=== PATIENT | female | born 1990 | race Caucasian/White ===

== ENCOUNTER 2017-04-19 14:36 | Inpatient (IN) ==
[2017-04-19] MEDS ORDERED: ONDANSETRON 4 MG/2 ML VIAL IVP ONE (14:54)
[2017-04-19] MEDS ORDERED: fentaNYL Inj 250 MCG/5 ML VIAL IVP ONE (14:54)
[2017-04-19] MEDS ORDERED: Sodium Chloride 0.9% 1,000 ML PRIMARY IV ONE ×2 (14:54→18:09)
--- NOTE | 2017-04-19 14:54 | PDOC ---
Chest Pain HPI - General Chief Complaint: Chest Pain Stated Complaint: CHEST PAIN STARTING WEDNESDAY Date Seen by Provider: 04/19/17 Time Seen by Provider: 14:53 Source: Patient Exam Limitations: POSITIVE: No limitations Treatment Prior to Arrival: REPORTS: None Nurse's Notes Reviewed & Considered: Yes - History of Present Illness Initial Comments: This is a anxious 26-year-old female complaining of chest pain and shortness of breath. Patient with chest pain that she describes as sharp with an element of tightness on deep respirations. Her pain radiates into her back and left shoulder and around under her left ribs. She has family history of multiple individuals with DVT, most recently her father 6 month ago with pulmonary embolism. She denies any headache, she does have shortness of breath and chest pain with deep respirations. She denies any vomiting or diarrhea but does have some nausea. She denies any hematuria or dysuria, no rashes. Body Location Affected: REPORTS: Chest Timing: REPORTS: Abrupt Duration: 1-3 hours Severity: Severe Context: REPORTS: Rest Quality: REPORTS: "Pain", Sharpness, Pressure Radiation: REPORTS: Neck (L), Shoulder (L), Back Associated Symptoms: REPORTS: Nausea, Shortness of Breath, Hurts to Breathe Modifying Factors: improves with: None Reported Similar Symptoms Previously: No Recently seen/treated/hospitalized: No Any Prior Injuries Related to Current Complaint?: No - Patient Home Medications Home Medications: Home Medications Acetaminophen [Tylenol] 500 mg PO Q6H PRN 04/19/17 Ranitidine HCl 75 mg PO DAILY 04/19/17 - Patient Allergies Allergies/Adverse Reactions: Allergies Allergy/AdvReac Type Severity Reaction Status Date / Time ciprofloxacin [From Cipro] Allergy VOMITING Verified 04/19/17 14:55 ciprofloxacin HCl Allergy VOMITING Verified 04/19/17 14:55 [From Cipro] latex Allergy Anaphylaxis Verified 04/19/17 14:55 "FEI" Allergy RASH Uncoded 04/19/17 14:55 ROS - Limitations ROS Limitations: No Limitations Constitution: REPORTS: Denies Symptoms Cardiovascular: REPORTS: Chest Pain Respiratory: REPORTS: Hurts To Breathe, Shortness Of Breath Neurological: REPORTS: Denies Neuro Symptoms Gastrointestinal: REPORTS: Nausea Endocrine: REPORTS: Denies Symptoms Musculoskeletal: REPORTS: Back Pain Genitourinary: REPORTS: Denies Symptoms Eyes: REPORTS: Denies Symptoms ENT: REPORTS: Denies Symptoms Skin: REPORTS: Denies Skin Symptoms Lympathic: REPORTS: Denies Lympathic Symptoms Immunologic: POSITIVE: Denies Symptoms Psychiatric: POSITIVE: Anxiety Chest Pain PE - General Appearance General Appearance: REPORTS: Alert, Cooperative, No Evidence of Trauma, Moderate Distress - HEENT HEENT: POSITIVE: Head Inspection Nml, Eyes Inspection Nml, Ears Inspection Nml, Nose Inspection Nml, Oral/Dental Inspect. Nml, Pharynx Inspect. Nml, PERRL, EOMI - Neck Neck: REPORTS: Normal Inspection, No Carotid Bruit - Respiratory Respiratory: REPORTS: No Respiratory Distress, Breath Sounds Normal, Chest Non- Tender - Cardiovascular Cardiovascular: REPORTS: Regular Rate and Rhythm, Heart Sounds Normal, Strong Pulses, No Murmur, No Gallop, No Friction Rub, No JVD Peripheral Pulses: Brachial (L): 4+ - Abdomen Abdomen: Soft: (All Quadrants), Normal Bowel Sounds: (All Quadrants), Denies Tenderness: (All Quadrants), No Splenomegaly: (All Quadrants), No Hepatomegaly: (All Quadrants), No Guarding: (All Quadrants), No Rebound: (All Quadrants), No Palpable Pulse: (All Quadrants), No Palpabale Mass: (All Quadrants), No Distention: (All Quadrants), No Rigidity: (All Quadrants) - Skin Skin: REPORTS: Intact, Normal For Race, Warm, Dry, No Rash - Extremities Extremity: Non-Tender: (All Extremities), Normal ROM: (All Extremities), Normal Inspection: (All Extremities), Pelvis Stable: (All Extremities) - Neurological / Psychological Neurological: POSITIVE: Oriented X3, Motor Normal, Sensation Normal Chest Pain Progress - Results Reviewed by me Xrays/CTs/US Reviewed by me: Yes Discussed with Radiologist: Yes Lab Results Reviewed: Yes Lab Results:: Laboratory Results 04/19/17 04/19/17 Range/Units 14:45 14:58 WBC 4.44 L (4.8-10.8) 10^3/uL RBC 4.61 (4.20-5.40) 10^6/uL Hgb 14.2 (12.0-16.0) g/dL Hct 41.9 (37.0-47.0) % MCV 90.9 (81-99) FL MCH 30.8 (27-31) PG MCHC 33.9 (33-37) g/dL RDW Std Deviation 44.0 (39-50) fL RDW Coeff of Gabrielle 13.4 (11.5-14.5) % Plt Count 258 (140-350) 10*3/uL MPV 9.0 (7.4-12.2) FL Immature Gran % (Auto) 0 (0-5) % Neut % (Auto) 46.1 L (50-80) % Lymph % (Auto) 38.7 (10-50) % Peach % (Auto) 12.4 (5-15) % Eos % (Auto) 2.3 (0-8) % Baso % (Auto) 0.5 (0-1) % Immature Gran # (Auto) 0 10*3/UL Neut # (Auto) 2.05 10*3/UL Lymph # (Auto) 1.72 10*3/uL Peach # (Auto) 0.55 (0.3-0.8) 10*3/UL Eos # (Auto) 0.10 10*3/UL Baso # (Auto) 0.02 10*3/UL WBC Morphology Comment Normal morphology (NORM) Plt Morphology Comment Normal morphology (NORM) RBC Morph Comment Normal morphology (NORM) PT 10.3 (9.7-11.4) secs INR 0.97 (0.00-5.90) N/A D-Dimer 1.41 H (0.00-0.59) mg/L Sodium 142 (135-145) meq/L Potassium 3.5 L (3.8-5.2) meq/L Chloride 107 (98-112) meq/L Carbon Dioxide 22 L (23-33) meq/L Anion Gap 13 (5-20) BUN 8 (7-22) mg/dL Creatinine 0.7 (0.50-1.20) mg/dL Estimated GFR > 60 (>60 ml/min/1.73m(2)) BUN/Creatinine Ratio 11.42 (6-20) Glucose 91 (78-110) mg/dL Calculated Osmolality 291.0 (267-292) mOsm/kg Calcium 9.5 (8.7-10.7) mg/dL Magnesium 2.0 (1.6-2.4) mg/dL Total Bilirubin 0.5 (0.3-1.2) mg/dL AST 18 (8-39) IU/L ALT 33 (9-52) IU/L Alkaline Phosphatase 79 (38-126) IU/L CK-MB (CK-2) 0.52 (0.00-5.00) NG/ML Troponin I < 0.012 (< 0.040) ng/mL C-Reactive Protein 3.4 H (0.0-0.9) mg/dL Total Protein 7.7 (6.1-8.0) g/dL Albumin 4.4 (3.5-4.8) g/dL Globulin 3.3 (2.50-4.10) g/dL Albumin/Globulin Ratio 1.30 (1.3-2.0) mg/g TSH 1.29 (0.2700-4.2000) uIU/mL EKG Interpreted/Reviewed By Me:: Yes EKG Interpretation:: POSITIVE: Normal Sinus Rhythm - Patient's Progress Pain Medication Addressed: POSITIVE: Yes Re-Examine Time: 17:49 Status: POSITIVE: Improved MDM / ED Course: Patient was evaluated, an IV started, blood drawn and sent to the lab for studies, EKG and radiographic examinations were obtained. Findings: D-dimer is elevated at 1-1/2, CBC is unremarkable, troponin is normal , comprehensive metabolic panel is unremarkable, CRP is elevated at 3-1/2. Chest x-ray shows no acute cardiopulmonary decompensation. CT scan for rule out of pulmonary embolism was unsuccessful due to failure of the IV. My discussion with radiology is to repeat CT examination in 3-4 hours after hydration. As it stands now the CT showed a small pericardial effusion present. Assessment: Chest pain with shortness of breath, probable pulmonary embolism. Plan: Admission. Quality Measure Initiative: CP/AMI: POSITIVE: EKG Quality Measure Initiative: CAP: POSITIVE: CXR or CT - Consult Consult (If Yes, Name of Consulting MD & Time Called): Yes (Dr. Reyes: [id number]) Consulting MD will see pt:: POSITIVE[place] [facility] [place] Counseled: POSITIVE: Patient, RE: Lab Results, RE: Radiology Results, RE: DX Patient Care Time - Estimated PCT Patient Care Time (In Minutes): 60 Vital Signs - Recent Vital Signs Vital Signs: Vital Signs (Last 8 hours) Temp Pulse Pulse Resp BP Pulse Ox 04/19/17 14:39 105 H 04/19/17 14:36 97.0 F 98 17 123/79 100 Discharge Clinical Impression: Chest pain Discharge Disposition: Admit to Inpatient Condition: Stable Patient Instructions Given at Discharge: Chest Pain (ED) Date Decision to Admit to Inpatient: 04/19/17 Time Decision to Admit to Inpatient: 17:49
[2017-04-19 15:01] LABS: BASOPHILS # (AUTO) 0.02 10*3/UL; BASOPHILS % (AUTO) 0.5 % (0-1); EOSINOPHILS % (AUTO) 2.3 % (0-8); Hematocrit [HCT] 41.9 % (37.0-47.0); Hemoglobin [HGB] 14.2 g/dL (12.0-16.0); LYMPHOCYTES # (AUTO) 1.72 10*3/uL; MEAN CORPUSCULAR HEMOGLOBIN 30.8 PG (27-31); MEAN CORPUSCULAR HGB CONC 33.9 g/dL (33-37); MEAN CORPUSCULAR VOLUME 90.9 FL (81-99); MONOCYTES # (AUTO) 0.55 10*3/UL (0.3-0.8); MONOCYTES % (AUTO) 12.4 % (5-15); NEUTROPHILS # (AUTO) 2.05 10*3/UL; NEUTROPHILS % (AUTO) 46.1 % (50-80); RED BLOOD COUNT 4.61 10^6/uL (4.20-5.40)
[2017-04-19 15:03] LABS: PLATELET MORPHOLOGY COMMENT NORMAL MORPHOLOGY (NORM); RBC MORPHOLOGY COMMENT NORMAL MORPHOLOGY (NORM); WBC MORPHOLOGY COMMENT NORMAL MORPHOLOGY (NORM)
[2017-04-19] MEDS: fentaNYL Inj 100 MCG/2 ML VIAL IVP ONE ×2 (15:17→15:29)
[2017-04-19 15:19] LABS: BLOOD UREA NITROGEN 8 mg/dL (7-22); BUN/CREATININE RATIO 11.42 (6-20); SERUM ALBUMIN 4.4 g/dL (3.5-4.8)
[2017-04-19] MEDS ORDERED: LORazepam 2 MG/1 ML VIAL IVP ONE (15:31)
--- NOTE | 2017-04-19 15:31 | DI ---
AP CHEST X-RAY, 04/19/2017 2:54 PM : Clinical History: Chest pain. Previous Exam: None at this facility. There is no acute soft tissue or bony abnormality. Heart size is normal. Lungs are clear. Mediastinal structures are normal. There are no pulmonary nodules. Reading: Normal chest x-ray.
[2017-04-19] MEDS ORDERED: KETOROLAC 15 MG/1 ML VIAL IVP ONE (16:00)
--- NOTE | 2017-04-19 16:04 | EKG ---
[address] [address] Measurements Intervals [place] Rate: 105 P: 41 [place]: 136 QRS: 81 QRSD: 88 T: -8 QT: 349 QTc: 410 Interpretive Statements SINUS TACHYCARDIA ABNORMAL QRS-T ANGLE [QRS-T AXIS DIFFERENCE > 60] INTERPRETATION BASED ON A DEFAULT AGE OF 40 YEARS No previous ECG available for comparison Electronically Signed On 04-20-17 11:43:22 MDT by Negro Molina MD [email or web address]
[2017-04-19] MEDS ORDERED: NITROGLYCERIN 0.4 MG SL TAB (BOTTLE OF 3) SL ONE (16:43)
[2017-04-19] MEDS ORDERED: MORPHINE SULFATE 4 MG/1 ML IVP ONE ×2 (18:43→18:44)
--- NOTE | 2017-04-19 21:23 | DI ---
VENOUS DOPPLER ULTRASOUND OF BOTH LOWER EXTREMITIES, 04/19/2017 8:04 PM: Clinical History: Leg pain. Previous Exam: None at this facility. Technique: 2D real-time imaging is supplemented with color Doppler ultrasound. Compression and augmen tation maneuvers were performed. The deep venous system from the groin to the popliteal fossa for both legs is normal. The greater sap henous veins are also normal. Reading: Negative venous Doppler ultrasound of both lower extremities for deep vein thrombosis.
[2017-04-19] MEDS ORDERED: Apixaban 5 MG TABLET PO SCH (21:46)
[2017-04-19] MEDS ORDERED: HYDROmorphone 2 MG/1 ML IVP PRN (21:46)
[2017-04-19] MEDS ORDERED: ACETAMINOPHEN 325 MG TABLET PO PRN (21:46)
[2017-04-19] MEDS ORDERED: LIDOCAINE W/ SODIUM BICARB 0.5 ML SYR SUBD PRN (21:46)
--- NOTE | 2017-04-19 22:23 | PDOC ---
History and Physical - History of Present Illness Date and Time of Service: 04/11/2017, 2219 Chief Complaint: Chest pain History of Present Illness: This very pleasant 26-year-old female with really no past medical history who presents with onset of chest pain last . She states that it was substernal and has been somewhat positional in that she cannot lay flat with the pain. She's had some shortness of breath developed but has denied any fevers, cough, or chills. The pain is been persistent despite trying Tylenol and antacids. The patient is not had chest pain like this before. She lives somewhat transiently with her in a camper and spends her time between [place] and [place], as her works for the railroad and she cares for her child at home. Patient was given opiates in the emergency room which seemed to help somewhat with the pain. It was reproducible on examination. Past Medical History Medical History: None Surgical History: 1. Cholecystectomy. 2. Appendectomy. 3. Foot and ankle surgery. 4. Right shoulder surgery 2. 5. Tonsillectomy Pertinent Family History: Father had blood clots. History of diabetes in the family. Past Social History: Does not smoke or drink. Has 1 child, described as healthy 2 years old. Currently [id number] mom and travels between [place] in [place] with her . Lives in a trailer. Tobacco Use: Never Smoker Substance Use Type: None Alcohol Use: None Medication / Allergies Home Medications: Home Medications Medication Instructions Recorded Confirmed Type Acetaminophen [Tylenol] 500 mg PO Q6H PRN 04/19/17 04/19/17 History Ranitidine HCl 75 mg PO DAILY 04/19/17 04/19/17 History Allergies/Adverse Reactions: Allergies Allergy/AdvReac Type Severity Reaction Status Date / Time ciprofloxacin [From Cipro] Allergy VOMITING Verified 04/19/17 21:47 ciprofloxacin HCl Allergy VOMITING Verified 04/19/17 21:47 [From Cipro] latex Allergy Anaphylaxis Verified 04/19/17 21:47 "FEI" Allergy RASH Uncoded 04/19/17 21:47 Review of Systems - Review of Systems All Systems: Reviewed & No Additional Complaints Except as Stated (I did a 12 point review systems and it is negative other than that discussed in the history of present illness and that noted below.) - Cardiovascular Cardiovascular: REPORTS: See HPI - Gastrointestinal Gastrointestinal / Abdominal: REPORTS: Nausea, Diarrhea. DENIES: Vomiting - Hematlogic / Lymphatic Hematologic / Lymphatic: REPORTS: Easy Bleeding/Bruising Exam - Vitals Vital Signs: Vital Signs Temperature 98.0 F Temperature Source Temporal Artery Scan Pulse Rate [Pulse Oximeter] 92 Pulse Rate 111 Respiratory Rate 16 Blood Pressure [Left Arm] 124/65 Blood Pressure 125/80 Pulse Ox 96 Oxygen Delivery Method Room Air Height 5 ft 7 in Weight 233 lb 9.6 oz - General General Appearance: POSITIVE: No Acute Distress, Cooperative - Head Head Exam: POSITIVE: Normal Inspection, Normocephalic, Atraumatic - Eye Eye Exam: POSITIVE: No Scleral Icterus - ENT ENT Exam: POSITIVE: Mucous Membranes Moist - Neck Neck Exam: POSITIVE: Normal Inspection, No Tenderness, No Thyromegaly - Respiratory Respiratory Exam: POSITIVE: Clear to Auscultation - Bilaterally, Breathing Non Labored, Normal to Percussion and Palpation - Cardiovascular Cardiovascular Exam: POSITIVE: No Murmur, No Clicks, No Gallops, No Rubs, Tachycardia, No JVD Additional Cardiovascular Details: Chest pain reproducible with palpation. - GI/Abdominal GI/Abdominal Exam: POSITIVE: Normal Bowel Sounds, Non Tender, Non Distended, Soft - Rectal Rectal Exam: POSITIVE: Deferred - External Exam: POSITIVE: Deferred Exam: POSITIVE: Deferred - Extremities Extremities Exam: POSITIVE: No Clubbing Present, No Edema Present, No Cyanosis Present - Back Back Exam: POSITIVE: Normal Inspection, No CVA Tenderness - Neurological Neurological Exam: POSITIVE: Alert, Oriented x 3, No Facial Droop, Speech Intact / Clear, Moves All Extremities Equally - Psychiatric Psychiatric Exam: POSITIVE: Normal Affect, Normal Mood - Integumentary Integumentary Exam: POSITIVE: Normal Color, Warm, Dry, Intact - Central Line Examination Central Line Present on Admission: No Results - Labs CBC and BMP: 04/19/17 14:58 04/19/17 14:58 Labs - Last 24 Hours: Laboratory Results 04/19/17 04/19/17 Range/Units 14:45 14:58 WBC 4.44 L (4.8-10.8) 10^3/uL RBC 4.61 (4.20-5.40) 10^6/uL Hgb 14.2 (12.0-16.0) g/dL Hct 41.9 (37.0-47.0) % MCV 90.9 (81-99) FL MCH 30.8 (27-31) PG MCHC 33.9 (33-37) g/dL RDW Std Deviation 44.0 (39-50) fL RDW Coeff of Gabrielle 13.4 (11.5-14.5) % Plt Count 258 (140-350) 10*3/uL MPV 9.0 (7.4-12.2) FL Immature Gran % (Auto) 0 (0-5) % Neut % (Auto) 46.1 L (50-80) % Lymph % (Auto) 38.7 (10-50) % Storey % (Auto) 12.4 (5-15) % Eos % (Auto) 2.3 (0-8) % Baso % (Auto) 0.5 (0-1) % Immature Gran # (Auto) 0 10*3/UL Neut # (Auto) 2.05 10*3/UL Lymph # (Auto) 1.72 10*3/uL [place]y # (Auto) 0.55 (0.3-0.8) 10*3/UL Eos # (Auto) 0.10 10*3/UL Baso # (Auto) 0.02 10*3/UL WBC Morphology Comment Normal morphology (NORM) Plt Morphology Comment Normal morphology (NORM) RBC Morph Comment Normal morphology (NORM) PT 10.3 (9.7-11.4) secs INR 0.97 (0.00-5.90) N/A D-Dimer 1.41 H (0.00-0.59) mg/L Sodium 142 (135-145) meq/L Potassium 3.5 L (3.8-5.2) meq/L Chloride 107 (98-112) meq/L Carbon Dioxide 22 L (23-33) meq/L Anion Gap 13 (5-20) BUN 8 (7-22) mg/dL Creatinine 0.7 (0.50-1.20) mg/dL Estimated GFR > 60 (>60 ml/min/1.73m(2)) BUN/Creatinine Ratio 11.42 (6-20) Glucose 91 (78-110) mg/dL Calculated Osmolality 291.0 (267-292) mOsm/kg Calcium 9.5 (8.7-10.7) mg/dL Magnesium 2.0 (1.6-2.4) mg/dL Total Bilirubin 0.5 (0.3-1.2) mg/dL AST 18 (8-39) IU/L ALT 33 (9-52) IU/L Alkaline Phosphatase 79 (38-126) IU/L CK-MB (CK-2) 0.52 (0.00-5.00) NG/ML Troponin I < 0.012 (< 0.040) ng/mL C-Reactive Protein 3.4 H (0.0-0.9) mg/dL Total Protein 7.7 (6.1-8.0) g/dL Albumin 4.4 (3.5-4.8) g/dL Globulin 3.3 (2.50-4.10) g/dL Albumin/Globulin Ratio 1.30 (1.3-2.0) mg/g TSH 1.29 (0.2700-4.2000) uIU/mL - EKG Data -: EKG Interpreted by Me Rate: Tachycardia EKG Shows Normal: Sinus Rhythm - EKG Data EKG Interpretation: Other (Appears to have an S1 QIII TIII pattern.) - Imaging Status: Image Reviewed by Me (Chest x-ray is negative. CT scan initially did not have time to contrast bolus, so we are repeating CT scan which is pending at this time. Ultrasound of the lower extremities is negative. Bilaterally.) Assessment and Plan - Patient Problems (1) Chest pain Current Visit: Yes Status: Acute Qualifiers: Chest pain type: chest pain on breathing Qualified Description: Chest pain on breathing Qualifier Code(s): (R07.1) Chest pain on breathing, ( R07.81) Pleurodynia - Assessment / Plan Additional Assessment/Plan Details: Thus far, this could very well represent a pulmonary emboli with an elevated d- dimer and continued chest pain. Fortunately, the ultrasound of the lower extremity is as negative, but that does not rule out a pulmonary emboli. The other possibility is that this could be pericarditis. If the CT scan is negative, then I will treat for pericarditis with steroids and /or anti-inflammatories. I would also get an echocardiogram, and have the patient follow with her primary care provider to make sure the pericarditis clears. I would also consider strongly a workup for rheumatoid arthritis and lupus at that point. If the CT scan is positive, then I will treat with anticoagulants, and discuss further with the patient. I written for opiates and antiemetics at this point. I discussed above plan with the patient, her , and her father and they all agree. I will note that the patient does have an IUD in place, but I would like to confirm that she has a negative test given contrast and radiation studies.
[2017-04-19] MEDS: ONDANSETRON 4 MG/2 ML VIAL IVP PRN (22:54)
[2017-04-19] MEDS: NORMAL SALINE 10 ML SYRINGE FLUSH IVP PRN (22:55)
[2017-04-20] MEDS: NORMAL SALINE 10 ML SYRINGE FLUSH IVP PRN ×2 (00:05→17:05)
[2017-04-20] MEDS: KETOROLAC 15 MG/1 ML VIAL IVP PRN ×4 (00:05→17:06)
[2017-04-20] MEDS: Sodium Chloride 0.9% 1,000 ML PRIMARY IV SCH ×2 (00:06→20:39)
--- NOTE | 2017-04-20 00:33 | DI ---
HISTORY: Chest pain. Elevated d-dimer. COMPARISON: None available. TECHNIQUE: CTA of the chest was performed with contrast and the images were submitted for interpreta tion. FINDINGS: There is no evidence of pulmonary embolus to the level of the lobar arteries. The pulmona ry vascularity is within normal limits. The heart is normal in size. The aorta is normal in caliber . The central airway is patent. There is no evidence of focal consolidation, pleural effusion or pn eumothorax. An accessory azygous lobe and fissure are noted. No acute skeletal pathology is seen. The imaged portions of the upper abdomen are grossly unremarkable. IMPRESSION: 1. No pulmonary embolus to the level of the lobar arteries. Artifact and timing bolus limits evaluat ion of the more distal branches. 2. No other significant findings. NOTIFICATION: The above report was faxed to Sintia Engle in the ER Department on 04/20/2017 at 04 :28 AM EST.
[2017-04-20] MEDS ORDERED: methylPREDNISolone 125 MG/2 ML VIAL IVP ONE (00:50)
[2017-04-20 05:05] LABS: BASOPHILS # (AUTO) 0.02 10*3/UL; BASOPHILS % (AUTO) 0.5 % (0-1); EOSINOPHILS # (AUTO) 0.03 10*3/UL; EOSINOPHILS % (AUTO) 0.7 % (0-8); Hemoglobin [HGB] 13.4 g/dL (12.0-16.0); LYMPHOCYTES # (AUTO) 0.91 10*3/uL; MEAN CORPUSCULAR HEMOGLOBIN 30.6 PG (27-31); MEAN CORPUSCULAR HGB CONC 33.5 g/dL (33-37); MEAN CORPUSCULAR VOLUME 91.3 FL (81-99); MEAN PLATELET VOLUME 9.4 FL (7.4-12.2); MONOCYTES # (AUTO) 0.13 10*3/UL (0.3-0.8); MONOCYTES % (AUTO) 3.2 % (5-15); NEUTROPHILS # (AUTO) 2.97 10*3/UL; NEUTROPHILS % (AUTO) 73.2 % (50-80); RED BLOOD COUNT 4.38 10^6/uL (4.20-5.40)
[2017-04-20 05:21] LABS: BLOOD UREA NITROGEN 6 mg/dL (7-22)
[2017-04-20 05:30] LABS: PLATELET MORPHOLOGY COMMENT NORMAL MORPHOLOGY (NORM); RBC MORPHOLOGY COMMENT NORMAL MORPHOLOGY (NORM); WBC MORPHOLOGY COMMENT NORMAL MORPHOLOGY (NORM)
[2017-04-20] MEDS: HYDROcodone-APAP 5 MG -325 MG TABLET PO PRN ×2 (08:31→17:46)
--- NOTE | 2017-04-20 08:55 | DI ---
CT ANGIOGRAM OF THE CHEST, 04/19/2017 3:28 PM : Clinical History: Chest pain with shortness of breath. Previous Exam: None at this facility. Scans are performed from the base of the neck to the lower lung bases following IV administration of approximately 30 mL of Isovue 300 before the IV access failed. The scans are nondiagnostic with respe ct to evaluation of pulmonary embolism. There are diagnostic with respect to a CT scan of the chest w ith IV contrast. The base of the neck and thoracic inlet are normal. There are no abnormal axillary, supraclavicular, mediastinal, or hilar nodes. The heart is normal. The pulmonary arteries are normal in size. There is no pulmonary arterial hypertension. Pulmonary embolism cannot be identified because of the low opaci fication of the pulmonary arteries. The lungs are clear and there are no pulmonary nodules or masses. There is diffuse fatty infiltration of the liver. The adrenal glands, spleen, and visualized portion s of the pancreas are normal. READIN. The study is nondiagnostic with respect to evaluation of the pulmonary arteries for pulmonary emb olism. The patient is scheduled to have a repeat study performed in about [address] scan of the chest with IV contrast is normal. 3. There is diffuse fatty infiltration of the liver.
[2017-04-20] MEDS ORDERED: FAMOTIDINE 20 MG TABLET PO SCH (09:00)
[2017-04-20] MEDS ORDERED: METHYLPREDNISOLONE 4 MG TAB DOSE PACK PO SCH (09:00)
[2017-04-20] MEDS ORDERED: METHYLPREDNISOLONE 4 MG TAB DOSE PACK(DAY 1 0700) PO SCH (09:00)
[2017-04-20] MEDS ORDERED: METHYLPREDNISOLONE 4 MG TAB DOSE PACK PO ONE (09:43)
[2017-04-20] MEDS: ONDANSETRON 4 MG/2 ML VIAL IVP PRN (10:38)
[2017-04-20] MEDS ORDERED: METHYLPREDNISOLONE 4 MG TAB DOSE PACK(DAY 1-4 1230) PO SCH (12:00)
--- NOTE | 2017-04-20 15:09 | PDOC(PROG) ---
Date and Time of Service: 04/20/2017, 1508 Interval History: Still complains of the chest pain, sharp and intermittent in epigastric area and along the rib cage mostly, worse with deep breath and positional changes. Initial report on echocardiogram as there may not be an effusion, but official report pending. It is a limited study. The patient states that she has had some nausea but no vomiting, no abdominal pain otherwise. Toradol does help the chest pain. Objective : Data - Labs CBC and BMP: 04/20/17 04:30 04/20/17 04:30 Labs - Last 24 Hours: Laboratory Results 04/19/17 04/20/17 Range/Units 22:23 04:30 WBC 4.06 L (4.8-10.8) 10^3/uL RBC 4.38 (4.20-5.40) 10^6/uL Hgb 13.4 (12.0-16.0) g/dL Hct 40.0 (37.0-47.0) % MCV 91.3 (81-99) FL MCH 30.6 (27-31) PG MCHC 33.5 (33-37) g/dL RDW Std Deviation 44.4 (39-50) fL RDW Coeff of Gabrielle 13.5 (11.5-14.5) % Plt Count 240 (140-350) 10*3/uL MPV 9.4 (7.4-12.2) FL Immature Gran % (Auto) 0 (0-5) % Neut % (Auto) 73.2 (50-80) % Lymph % (Auto) 22.4 (10-50) % Dare % (Auto) 3.2 L (5-15) % Eos % (Auto) 0.7 (0-8) % Baso % (Auto) 0.5 (0-1) % Immature Gran # (Auto) 0 10*3/UL Neut # (Auto) 2.97 10*3/UL Lymph # (Auto) 0.91 10*3/uL Dare # (Auto) 0.13 L (0.3-0.8) 10*3/UL Eos # (Auto) 0.03 10*3/UL Baso # (Auto) 0.02 10*3/UL WBC Morphology Comment Normal morphology (NORM) Plt Morphology Comment Normal morphology (NORM) RBC Morph Comment Normal morphology (NORM) Sodium 141 (135-145) meq/L Potassium 3.9 (3.8-5.2) meq/L Chloride 111 (98-112) meq/L Carbon Dioxide 20 L (23-33) meq/L Anion Gap 10 (5-20) BUN 6 L (7-22) mg/dL Creatinine 0.6 (0.50-1.20) mg/dL Estimated GFR > 60 (>60 ml/min/1.73m(2)) BUN/Creatinine Ratio 10.00 (6-20) Glucose 125 H (78-110) mg/dL Calculated Osmolality 290.0 (267-292) mOsm/kg Calcium 8.8 (8.7-10.7) mg/dL U Specif Grav (Refrac) 1.020 Urine HCG, Qual Negative - Imaging CT Scan Status: Image Pending (I have ordered a VQ scan as 2 CT scans have had phase contrast problems with IV contrast. It does not appear that it will be positive for a pulmonary emboli, but I'd like to confirm as best as possible.), Report Reviewed by Me (CT scan, again negative for pneumonia and for pulmonary embolism but only done about second order branches.) Objective : Exam - General General Appearance: No Acute Distress, Cooperative Additional General Exam Details: Vital Signs - Last Taken Temperature 97.4 F 04/20/17 12:09 Pulse Rate 94 04/20/17 12:09 Respiratory Rate 18 04/20/17 12:09 Blood Pressure 117/63 04/20/17 12:09 Pulse Ox 94 04/20/17 12:09 - Eye Eye Exam: No Scleral Icterus - ENT ENT Exam: Mucous Membranes Moist - Respiratory Respiratory Exam: Clear to Auscultation - Bilaterally, Breathing Non Labored Additional Respiratory Exam Details: Pain appears very pleuritic in nature as she does have some pain with deep breathing. - Cardiovascular Cardiovascular Exam: RRR, No Murmur, No Clicks, No Gallops, No Rubs - GI/Abdominal GI/Abdominal Exam: Normal Bowel Sounds, Non Tender, Non Distended, Soft - Extremities Extremities Exam: No Clubbing Present, No Edema Present, No Cyanosis Present - Neurological Neurological Exam: Alert, Oriented x 3, No Facial Droop, Speech Intact / Clear, Moves All Extremities Equally Assessment and Plan - Patient Problems (1) Chest pain Current Visit: Yes Status: Acute Qualifiers: Chest pain type: chest pain on breathing Qualified Description: Chest pain on breathing Qualifier Code(s): (R07.1) Chest pain on breathing, ( R07.81) Pleurodynia - Assessment / Plan Additional Assessment/Plan Details: Pleuritic pain, I still think pericarditis is most likely. I would like a VQ scan to make sure we are not missing pulmonary emboli and given 2 CT scans of the chest with some issues with the IV contrast phase, I think it's best to just do the VQ scan this time. Continue anti-inflammatories and steroids. We'll stop IV fluids. Get a lipase level to make sure not missing any abdominal variant.
--- NOTE | 2017-04-20 16:37 | DI ---
VENTILATION AND PERFUSION LUNG SCAN, 04/20/2017 10:05 AM: Clinical History: Chest pain. Previous Exam: None at this facility. Technique: The patient was ventilated with Tc-99 DTPA aerosol, and 8 views were attempted, but the pa tient could not tolerate ventilation for the RPO and POLISH projections. The patient was then injected w ith 6 mCi of Tc-99 MAA IV, and the routine 8 views were performed. The ventilation scans are normal on the 60s that were obtained. All 8 perfusion scans are normal. Reading: Normal ventilation and perfusion lung scan. These carry a low probability for pulmonary embolism.
[2017-04-20] MEDS ORDERED: METHYLPREDNISOLONE 4 MG TAB DOSE PACK(DAY 1-3 1730) PO SCH (17:30)
[2017-04-20] MEDS ORDERED: CALCIUM CARBONATE 500 MG (TUMS) CHEWABLE TABLET PO PRN (20:19)
[2017-04-20] MEDS ORDERED: Pantoprazole Inj 40 MG in Normal Saline Flush 10 ML IVP ONE (20:19)
[2017-04-20] MEDS ORDERED: Naproxen Tab 500 MG TAB PO ONE (20:24)
[2017-04-20] MEDS ORDERED: METHYLPREDNISOLONE 4 MG TAB DOSE PACK(DAY 1-2 2100) PO SCH (21:00)
[2017-04-21] MEDS: Pantoprazole Inj 40 MG in Normal Saline Flush 10 ML IVP SCH ×3 (01:59→21:44)
[2017-04-21] MEDS: Sodium Chloride 0.9% 1,000 ML PRIMARY IV SCH (02:02)
[2017-04-21] MEDS ORDERED: Naproxen Tab 500 MG TAB PO SCH (07:00)
[2017-04-21] MEDS ORDERED: METHYLPREDNISOLONE 4 MG TAB DOSE PACK(DAY 2-6 0700) PO SCH (07:00)
[2017-04-21] MEDS: HYDROcodone-APAP 5 MG -325 MG TABLET PO PRN (08:13)
[2017-04-21] MEDS ORDERED: Acetaminophen 1000mg Inj 1,000 MG in Premix 1 BAG IV ONE (10:19)
[2017-04-21] MEDS: NORMAL SALINE 10 ML SYRINGE FLUSH IVP PRN ×2 (15:28→18:03)
[2017-04-21] MEDS: KETOROLAC 30 MG/1 ML VIAL IVP PRN ×2 (15:30→21:45)
--- NOTE | 2017-04-21 16:52 | DI ---
CT ABDOMEN SCAN WITH IV CONTRAST, 04/21/2017 10:20 AM : Clinical History: Epigastric pain. Bilateral flank pain. Previous Exam: None at this facility. Scans are performed from the lower lung bases through the liver and kidneys with IV contrast. 95 ml o f Isovue 300 was injected IV. No oral or rectal contrast was ordered. The lung bases are clear. The liver is normal. The patient is status post cholecystectomy and the com mon bile duct measures 5-6 mm. There is mild splenomegaly. The pancreas and both adrenal glands are n ormal. Both kidneys are normal in size, shape, position and contour. There is no hydronephrosis or hy droureter. No renal or ureteral calculi are present. There are no abnormal retrocrural or periaortic nodes. No ascites is present. READING: Mild splenomegaly. The study is otherwise normal. CT PELVIS SCAN WITH IV CONTRAST, 04/21/2017 10:20 AM: Clinical History: See above. Previous Exam: None at this facility. Scans are performed from just superior to the umbilicus to the symphysis pubis with IV contrast. This is the same bolus of contrast used for the CT scans of the abdomen. Scans through the lower abdomen and pelvis show no masses or abnormal fluid collections. There is no adenopathy. The patient is status post appendectomy. There is no inflammatory mass either in the ceca l tip or in the right lower quadrant. The small bowel, terminal ileum, and ileocecal valve are normal . The colon is also normal. There is a small umbilical hernia through which only mesenteric fat has h erniated. The uterus and both ovaries are normal. There is an IUD in place and the position is normal . READING: Normal CT scan of the pelvis.
[2017-04-21] MEDS ORDERED: Metoclopramide Inj 10 MG/2 ML VIAL IVP PRN (17:34)
[2017-04-21] MEDS ORDERED: Metoclopramide Inj 10 MG/2 ML VIAL IVP ONE (17:34)
[2017-04-21] MEDS ORDERED: MAGNESIUM 400 MG/5 ML - 30 ML (MILK OF MAGNESIA) PO ONE (17:35)
--- NOTE | 2017-04-21 17:47 | PDOC(PROG) ---
Date and Time of Service: 04/21/2017, 1744 Interval History: Pain escalated this morning, but is now down to about a 6 out of 10. Patient felt a little nauseous but that has resolved. No vomiting. Pain is largely located below rib cage and in the epigastric area. She states that she predominantly has diarrhea that is fairly quick after meals. No constipation. CT scan of the abdomen and pelvis was negative, but when I did review it I felt that the stomach looked a little larger than normal. No trouble breathing. Objective : Data - Labs CBC and BMP: 04/20/17 04:30 04/20/17 04:30 Labs - Last 24 Hours: Laboratory Results 04/20/17 Range/Units 22:20 ESR 15 (0-20) MM/HR Rheumatoid Factor < 8.6 (0.00-11.99) IU/ML - EKG Data -: EKG Interpreted by Me - EKG Data EKG Interpretation: Other (I spoke with cardiology in [place] regarding this EKG. The feeling was that this represented an EKG that could show LVH.) Objective : Exam - General General Appearance: No Acute Distress, Cooperative Additional General Exam Details: Vital Signs - Last Taken Temperature 97.1 F 04/21/17 13:00 Pulse Rate 56 L 04/21/17 15:00 Respiratory Rate 16 04/21/17 13:00 Blood Pressure 98/51 04/21/17 13:00 Pulse Ox 96 04/21/17 13:00 - Eye Eye Exam: No Scleral Icterus - ENT ENT Exam: Mucous Membranes Moist - Respiratory Respiratory Exam: Clear to Auscultation - Bilaterally, Breathing Non Labored - Cardiovascular Cardiovascular Exam: RRR, No Murmur, No Clicks, No Gallops, No Rubs, No JVD - GI/Abdominal GI/Abdominal Exam: Normal Bowel Sounds, Non Distended, Soft Additional GI/Abdominal Exam Details: Some tenderness with epigastric palpation. - Extremities Extremities Exam: No Clubbing Present, No Edema Present, No Cyanosis Present - Neurological Neurological Exam: Alert, Oriented x 3, No Facial Droop, Speech Intact / Clear, Moves All Extremities Equally Assessment and Plan - Patient Problems (1) Pericarditis Current Visit: Yes Status: Acute (2) Gastric distention Current Visit: Yes Status: Acute Comment: on my view of the CT scan (3) Chest pain Current Visit: Yes Status: Acute Qualifiers: Chest pain type: unspecified Qualified Description: Chest pain, unspecified type Qualifier Code(s): (R07.9) Chest pain, unspecified - Assessment / Plan Additional Assessment/Plan Details: Again on my review of the CT scan, this could be slightly distended stomach and perhaps there is a functional outlet obstruction of some type. There could also be delayed gastric emptying. I will try Reglan with some milk of magnesia to see if this helps improve symptoms. Continue anti-inflammatories. Pericarditis is still a possibility. Cardiology did recommend outpatient evaluation with this EKG for LVH. Hopefully the panel be better tomorrow and we'll consider discharge tomorrow with an outpatient follow-up plan. Do think that the patient should have an EGD done as well but that can be done as an outpatient as well.
[2017-04-22] MEDS: Pantoprazole Inj 40 MG in Normal Saline Flush 10 ML IVP SCH (08:21)
[2017-04-22] MEDS: KETOROLAC 30 MG/1 ML VIAL IVP PRN (08:22)
[2017-04-22] MEDS: NORMAL SALINE 10 ML SYRINGE FLUSH IVP PRN (08:22)
--- NOTE | 2017-04-22 12:04 | DCSUMMARY ---
Hospitalization Summary Admit Date: 04/19/17 Discharge Date: 04/22/17 Primary Diagnosis:: pericarditis and gastroparesis Hospital Course: This very pleasant 26-year-old female who presented with chest pain sharp in etiology and was admitted for further evaluation and management. She had extensive workup. In terms of the chest pain, she ruled out for pulmonary emboli, but had some phase contrast issues with studies, so we also opted to do a VQ scan to confirm and ultrasounds of the lower extremities to confirm no DVTs. The VQ scan and lower extremity studies were negative, and 2 CT scans at the second order were negative for pulmonary emboli. Troponin was negative. We thought that this could be pericarditis, and did an echocardiogram which did not show any evidence of pericardial effusion. An EKG showed QRST angle that was greater than 60 and I curb sided a rim roller operator regarding that finding, and it was suggested that this could present LVH. We will have the patient follow with her rim roller operator outpatient to evaluate that EKG tracing and suggest any further studies. Again echocardiogram was read as normal and I got that report from a rim roller operator as well. It was a limited study however. I thought that there could be referred pain from epigastric area, lipase was negative. I did a CT scan of the abdomen and pelvis, and on my view the stomach looks somewhat distended in the first portion of the duodenum looked enlarged. I trialed the patient on Reglan with the thought of delayed gastric emptying or even possibly a gastric outlet obstruction, although the patient never did have nausea or vomiting. The patient did report improvements in her pain when treating for pericarditis with anti-inflammatories and Reglan for delayed gastric emptying. She feels that she can go home today. I also gave her some milk of magnesia and that seemed to help her as well. She reported good bowel movements through the last 24 hours. I do think the patient would benefit from consideration for a gastroenterology consult, delayed gastric imaging studies, and a possible EGD. I added H. pylori IgG antibody study today as well that can be followed up by a primary care provider. No complains of shortness of breath, nausea or vomiting, and although chest pain is still present and is significantly improved and the patient feel she can go home. Assessment and Plan: 1. As per discharge assessments noted 2. Disposition: Patient is discharged home. 3. Condition on discharge, stable and improved. 4. Diet: regular diet 5. Activities: resume normal activities 6. Follow-Up: 1. See Dr. Kaufman and one week 7. Medications at the Time of Discharge: Home Medications Medication Instructions Recorded Confirmed Type Acetaminophen [Tylenol] 500 mg PO Q6H PRN 04/19/17 04/19/17 History Ibuprofen [Motrin] 800 mg PO TID #60 tab 04/22/17 Rx Metoclopramide HCl [Reglan] 10 mg PO AC PRN #60 tablet 04/22/17 Rx Pantoprazole Sodium [Protonix] 40 mg PO AC BK #30 tablet. 04/22/17 Rx 8. Time, care, counseling and coordination of care for this discharge is greater than 30 minutes. Exam - Vitals Vital Signs: Vital Signs Temperature 97.4 F Temperature Source Temporal Artery Scan Pulse Rate [Apical] 65 Pulse Rate [Pulse Oximeter] 85 Pulse Rate 59 Respiratory Rate 20 Blood Pressure [Left Arm] 117/68 Blood Pressure 125/80 Pulse Ox 97 Oxygen Delivery Method Room Air Height 5 ft 7 in Weight 233 lb 9.6 oz - General General Appearance: POSITIVE: No Acute Distress, Cooperative - Head Head Exam: POSITIVE: Normal Inspection, Normocephalic, Atraumatic - Eye Eye Exam: POSITIVE: No Scleral Icterus - Respiratory Respiratory Exam: POSITIVE: Clear to Auscultation - Bilaterally, Breathing Non Labored - Cardiovascular Cardiovascular Exam: POSITIVE: RRR, No Murmur, No Clicks, No Gallops, No Rubs, No JVD - GI/Abdominal GI/Abdominal Exam: POSITIVE: Normal Bowel Sounds, Non Tender, Non Distended, Soft - Extremities Extremities Exam: POSITIVE: No Clubbing Present, No Edema Present, No Cyanosis Present - Neurological Neurological Exam: POSITIVE: Alert, Oriented x 3, No Facial Droop, Speech Intact / Clear, Moves All Extremities Equally Data Perinent Studies: Laboratory Results 04/19/17 04/19/17 04/19/17 Range/Units 14:45 14:58 22:23 WBC 4.44 L (4.8-10.8) 10^3/uL RBC 4.61 (4.20-5.40) 10^6/uL Hgb 14.2 (12.0-16.0) g/dL Hct 41.9 (37.0-47.0) % MCV 90.9 (81-99) FL MCH 30.8 (27-31) PG MCHC 33.9 (33-37) g/dL RDW Std Deviation 44.0 (39-50) fL RDW Coeff of Gabrielle 13.4 (11.5-14.5) % Plt Count 258 (140-350) 10*3/uL MPV 9.0 (7.4-12.2) FL Immature Gran % (Auto) 0 (0-5) % Neut % (Auto) 46.1 L (50-80) % Lymph % (Auto) 38.7 (10-50) % [place] % (Auto) 12.4 (5-15) % Eos % (Auto) 2.3 (0-8) % Baso % (Auto) 0.5 (0-1) % Immature Gran # (Auto) 0 10*3/UL Neut # (Auto) 2.05 10*3/UL Lymph # (Auto) 1.72 10*3/uL [place] # (Auto) 0.55 (0.3-0.8) 10*3/UL Eos # (Auto) 0.10 10*3/UL Baso # (Auto) 0.02 10*3/UL WBC Morphology Comment Normal morphology (NORM) Plt Morphology Comment Normal morphology (NORM) RBC Morph Comment Normal morphology (NORM) ESR (0-20) MM/HR PT 10.3 (9.7-11.4) secs INR 0.97 (0.00-5.90) N/A D-Dimer 1.41 H (0.00-0.59) mg/L Sodium 142 (135-145) meq/L Potassium 3.5 L (3.8-5.2) meq/L Chloride 107 (98-112) meq/L Carbon Dioxide 22 L (23-33) meq/L Anion Gap 13 (5-20) BUN 8 (7-22) mg/dL Creatinine 0.7 (0.50-1.20) mg/dL Estimated GFR > 60 (>60 ml/min/1.73m(2)) BUN/Creatinine Ratio 11.42 (6-20) Glucose 91 (78-110) mg/dL Calculated Osmolality 291.0 (267-292) mOsm/kg Calcium 9.5 (8.7-10.7) mg/dL Magnesium 2.0 (1.6-2.4) mg/dL Total Bilirubin 0.5 (0.3-1.2) mg/dL AST 18 (8-39) IU/L ALT 33 (9-52) IU/L Alkaline Phosphatase 79 (38-126) IU/L CK-MB (CK-2) 0.52 (0.00-5.00) NG/ML Troponin I < 0.012 (< 0.040) ng/mL C-Reactive Protein 3.4 H (0.0-0.9) mg/dL Total Protein 7.7 (6.1-8.0) g/dL Albumin 4.4 (3.5-4.8) g/dL Globulin 3.3 (2.50-4.10) g/dL Albumin/Globulin Ratio 1.30 (1.3-2.0) mg/g Lipase (23-300) IU/L TSH 1.29 (0.2700-4.2000) uIU/mL U Specif Grav (Refrac) 1.020 Urine HCG, Qual Negative Rheumatoid Factor (0.00-11.99) IU/ML 04/20/17 04/20/17 Range/Units 04:30 22:20 WBC 4.06 L (4.8-10.8) 10^3/uL RBC 4.38 (4.20-5.40) 10^6/uL Hgb 13.4 (12.0-16.0) g/dL Hct 40.0 (37.0-47.0) % MCV 91.3 (81-99) FL MCH 30.6 (27-31) PG MCHC 33.5 (33-37) g/dL RDW Std Deviation 44.4 (39-50) fL RDW Coeff of Gabrielle 13.5 (11.5-14.5) % Plt Count 240 (140-350) 10*3/uL MPV 9.4 (7.4-12.2) FL Immature Gran % (Auto) 0 (0-5) % Neut % (Auto) 73.2 (50-80) % Lymph % (Auto) 22.4 (10-50) % [place] % (Auto) 3.2 L (5-15) % Eos % (Auto) 0.7 (0-8) % Baso % (Auto) 0.5 (0-1) % Immature Gran # (Auto) 0 10*3/UL Neut # (Auto) 2.97 10*3/UL Lymph # (Auto) 0.91 10*3/uL [place] # (Auto) 0.13 L (0.3-0.8) 10*3/UL Eos # (Auto) 0.03 10*3/UL Baso # (Auto) 0.02 10*3/UL WBC Morphology Comment Normal morphology (NORM) Plt Morphology Comment Normal morphology (NORM) RBC Morph Comment Normal morphology (NORM) ESR 15 (0-20) MM/HR PT (9.7-11.4) secs INR (0.00-5.90) N/A D-Dimer (0.00-0.59) mg/L Sodium 141 (135-145) meq/L Potassium 3.9 (3.8-5.2) meq/L Chloride 111 (98-112) meq/L Carbon Dioxide 20 L (23-33) meq/L Anion Gap 10 (5-20) BUN 6 L (7-22) mg/dL Creatinine 0.6 (0.50-1.20) mg/dL Estimated GFR > 60 (>60 ml/min/1.73m(2)) BUN/Creatinine Ratio 10.00 (6-20) Glucose 125 H (78-110) mg/dL Calculated Osmolality 290.0 (267-292) mOsm/kg Calcium 8.8 (8.7-10.7) mg/dL Magnesium (1.6-2.4) mg/dL Total Bilirubin (0.3-1.2) mg/dL AST (8-39) IU/L ALT (9-52) IU/L Alkaline Phosphatase (38-126) IU/L CK-MB (CK-2) (0.00-5.00) NG/ML Troponin I (< 0.040) ng/mL C-Reactive Protein (0.0-0.9) mg/dL Total Protein (6.1-8.0) g/dL Albumin (3.5-4.8) g/dL Globulin (2.50-4.10) g/dL Albumin/Globulin Ratio (1.3-2.0) mg/g Lipase 79 (23-300) IU/L TSH (0.2700-4.2000) uIU/mL U Specif Grav (Refrac) Urine HCG, Qual Rheumatoid Factor < 8.6 (0.00-11.99) IU/ML Patient Problems - Patient Problem List (1) Pericarditis Current Visit: Yes Status: Acute (2) Gastric distention Current Visit: Yes Status: Acute (3) Chest pain Current Visit: Yes Status: Acute Qualifiers: Chest pain type: unspecified Qualified Description: Chest pain, unspecified type Qualifier Code(s): (R07.9) Chest pain, unspecified (4) Delayed gastric emptying Current Visit: Yes Status: Acute (5) Gastroparesis Current Visit: Yes Status: Suspected
[2017-04-22 12:31] VITALS: RESP 18; TEMP 97.6
[2017-04-22] MEDS ORDERED: METHYLPREDNISOLONE 4 MG TAB DOSE PACK(DAY 3-5 2100) PO SCH (21:00)
== END 2017-04-22 12:53 | disposition home or self-care (01) | DRG 316 ==
LOC: ER 14:36 → MED/SURG 17:49
PROVIDERS: ADMIT Family Medicine; ATTEND Family Medicine